=== PATIENT | male | born 1965 | race Caucasian/White ===

== ENCOUNTER 2024-03-14 18:48 | Emergency (ER) | payer OTHER, SELFPAY ==
[2024-03-14 18:51] VITALS: BP 163/83
[2024-03-14 19:15] VITALS: BP 147/82
[2024-03-14 19:34] LABS: % Basophils 0.7 % (0-2); % Eosinophils 2.3 % (0-6); % Immature Granulocytes 0.2 % (0-0.5); % Lymphocytes 30.4 % (20.5-51.1); % Monocytes 7.8 % (1.7-9.3); % Neutrophils 58.6 % (42.2-75.2); Absolute Eosinophils 0.1 10^3/uL (0-0.7); Absolute Lymphocytes 1.7 10^3/uL (1.2-3.4); Absolute Monocytes 0.4 10^3/uL (0.1-0.6); Absolute Neutrophils 3.3 10^3/uL (1.4-6.5); Hematocrit 36.9 % (39.0-52.0); Hemoglobin 12.8 g/dL (13.0-18.0); Mean Corp Hgb Conc. 34.7 g/dL (33.0-37.0); Mean Corpuscular Hgb 31.4 pg (27.0-31.0); Mean Corpuscular Volume 90.4 fL (80.0-94.0); Mean Platelet Volume 11.2 fL (7.4-10.4); Nucleated Red Blood Cells % 0 % (-); Platelet Count 121 10^3/uL (130-400); Red Blood Cell Count 4.08 10^6/uL (4.70-6.10); Red Cell Dist. Width 13.2 % (11.5-14.5); White Blood Cell Count 5.6 10^3/uL (4.8-10.8)
[2024-03-14 19:47] LABS: ALT (SGPT) 27 U/L (0-50); AST (SGOT) 34 U/L (17-59); Alkaline Phosphatase 64 U/L (38-126); Blood Urea Nitrogen 35 mg/dl (9-20); Calcium 10.8 mg/dl (8.4-10.2); Carbon Dioxide 27 mmol/L (22-30); Chloride 103 mmol/L (98-107); Glucose 104 mg/dl (70-99); Potassium 3.9 mmol/L (3.5-5.1); Sodium 137 mmol/L (135-145); Total Bilirubin 0.7 mg/dl (0.2-1.3); Total Protein 7.2 g/dl (6.3-8.2); eGFR > 60.00
[2024-03-14 19:58] LABS: Troponin I < 0.012 ng/ml
[2024-03-14 20:00] VITALS: BP 144/72
[2024-03-14 21:00] VITALS: BP 142/66
--- NOTE | 2024-03-14 21:17 | ED.GENMED ---
History of Present Illness
General
Chief Complaint: Cardiac Symptoms
Source: patient
Time Seen by Provider: 03/14/24 19:15
Travel History
Have you had any contact with someone who has COVID-19?: No
Do you have any symptoms of coronavirus? Fever > 100 degrees, chills, cough, shortness of breath, sore throat, loss of taste or smell, muscle aches, or headache?: No
History of Present Illness
History of Present Illness:
58-year-old male who presents with palpitations. Patient states that earlier this morning. Patient currently feels a little better. No shortness of breath. No syncope. Has had a stress test in the past that was normal. He does exercise
regularly and has been tolerating it well. No chest pain. Patient has been Dr. Demarco. The patient states that he did check his heart on his debra and his rhythm strips suggest that he had A-fib. He was not sure so he decided come for evaluation
Past History
Past History
ED Past Medical History: Other (+brain aneursym) and Other (thrombocytopenia)
ED Past Surgical History: None
Social History
Tobacco: Non-smoker
Alcohol: None
Drug: None
Personal:
Living: with family
Family History
Family History: Negative Early CAD
Phy Exam
Physical Exam
Physical Exam:
CONSTITUTIONAL Patient alert and oriented to person, place and time. Well-appearing. Vital signs reviewed.
HEAD atraumatic, normocephalic.
EYES eyelids normal to inspection, Pupils equally round and reactive to light, Extraocular muscles intact, Conjunctiva normal, Sclera normal.
NECK normal range of motion, Trachea midline, no jugular venous distention.
RESPIRATORY CHEST No respiratory distress noted, Chest expansion equal, Bilateral breath sounds clear.
CARDIOVASCULAR regular rate and rhythm, Heart sounds normal.
UPPER EXTREMITY range of motion normal, Motor strength normal, no cyanosis, no edema.
LOWER EXTREMITY range of motion normal, Motor strength normal, no cyanosis, no edema.
NEURO Speech normal, No focal motor deficits, [place] coma scale 15, Memory normal, Cranial Nerves intact to screening exam.
SKIN skin warm, dry, and normal in color.
PSYCHIATRIC patient oriented to person place and time, Normal affect.
Course
Orders/Labs/Results
Orders:
Orders
03/14/24 18:51
Electrocardiogram (*1) Urgent
Reason for Study: Palpitations
EKG- Treatment ONCE
03/14/24 19:26
Complete Blood Count/With Diff Urgent
Comprehensive Metabolic Panel Urgent
Lyme Progressive Urgent
Comment: ADD ON
Troponin I Urgent
03/14/24 19:51
Add On- LAB Urgent
Tests Added?: lyme progressive
Abnormal Lab Results
03/14/24
19:26
RBC 4.08 L 10^6/uL
(4.70-6.10)
Hgb 12.8 L g/dL
(13.0-18.0)
Hct 36.9 L %
(39.0-52.0)
MCH 31.4 H pg
(27.0-31.0)
Plt Count 121 L 10^3/uL
(130-400)
MPV 11.2 H fL
(7.4-10.4)
BUN 35 H mg/dl
(9-20)
Glucose 104 H mg/dl
(70-99)
Calcium 10.8 H mg/dl
(8.4-10.2)
03/14/24 19:26
03/14/24 19:26
Vital Signs
Initial and Last Documented VS:
Initial Vital Signs
Temp Pulse Resp BP Pulse Ox
97.9 F 72 17 163/83 99
03/14/24 18:51 03/14/24 18:51 03/14/24 18:51 03/14/24 18:51 03/14/24 18:51
Last Documented Vital Signs
Temp Pulse Resp BP Pulse Ox
97.9 F 64 14 147/82 99
03/14/24 18:51 03/14/24 19:30 03/14/24 19:30 03/14/24 19:15 03/14/24 18:51
MDM/Problems Addressed
MDM/Problems Addressed:
Palpitations, PVCs, U waves
*Pulse Oximetry
Patient hypoxic: no
*EKG
Interpreted by ED Provider?: Yes
Interpretation: normal
Comparison EKG: no changes (Compared to 2013 EKG)
Rate: normal
[place]: normal axis
Interval: normal interval and other (U waves noted)
QRS Pattern: normal QRS
Ischemia: no ischemia
*Electrical Controls Engineer Interpretation
Rate: normal
Interpretation: normal
Rhythm: sinus
*Critical Care Note
Total Time (30-74mins, 75-104mins- exclusive of procedures): Not Applicable
Data Reviewed
Review of Other/Old Records Reveals: Other (ekg reviewed)
Source: patient and spouse
Prescriptions/Medications Considered But Not Given:
Consider beta-ayde but no evidence of A-fib
Patient Management
Escalation/DeEscalation of care consider admission/obs:
The patient's strip on his phone debra was reviewed. No evidence of A-fib. EKG shows possible U waves that I do see on his old EKG as well. Labs grossly unremarkable. Will refer to cardio for outpatient follow-up possible Holter. The patient does
admit that he only drinks about 2030 ounces of water a day. I advised him to take at least 80 to 100 ounces. He does exercise and has been tolerating it well. Outpatient
ED Attending Note
-
Portions of this chart may have been created with voice recognition software.� Occasional wrong word or��sound alike� substitutions may have occurred due to the inherent limitations of voice recognition software.
Discharge Plan
Departure
Patient Disposition: Home (Routine Discharge)
Date of Disposition: 03/14/24
Time of Disposition: 21:29
Patient with high blood pressure during this ER visit?: Yes
Discharge Problem:
Heart palpitations, Frequent PVCs
Instructions: Ventricular premature beats, Palpitations, BLOOD PRESSURE
Prescriptions:
No Action
ondansetron [Zofran ODT] 8 MG tablet,disintegrating
8 mg PO Q8H Qty: 12 0RF
Referrals:
Marvin Oliveira MD [Family Provider] -
Activity Restrictions/Additional Instructions:
Please drink 80 to 100 ounces of water daily. Please see your radio time buyer in the next 1 week for follow-up and reevaluation possible Holter monitoring. Return immediately for lightheadedness, passing out episode, chest pain, shortness of breath,
weakness of any kind or any other concerns.
Interventions
Interventions:
*Risk Screen - Suicide Last Done: 03/14/24 19:35
*General Assessment Last Done: 03/14/24 19:35
*Neglect/Abuse Screening Last Done: 03/14/24 19:35
ED- Fall Risk Assessment Last Done: 03/14/24 19:32
ED- Pulmonary Assessment Last Done: 03/14/24 19:32
ED- Cardiac Assessment Last Done: 03/14/24 19:32
Discharge Date and Time
Print Language: MALAWIAN
[2024-03-16 16:55] LABS: Lyme Antibody Screen, EIA Negative (Negative)
== END 2024-03-14 21:46 | disposition home or self-care (01) ==
LOC: EMR 18:48
PROVIDERS: EMERGENCY PHYSICIAN Emergency Medicine; FAMILY PHYSICIAN Internal Medicine
DX: R00.2 Palpitations (principal); I49.3 Ventricular premature depolarization; R03.0 Elevated blood-pressure reading, without diagnosis of hypertension
CPT/HCPCS: 99284; 80053; 84484; 85025; 86618; 93005

== ENCOUNTER → 2025-03-11 09:04 | Outpatient (REF) | payer OTHER, SELFPAY | LOC: RAD 09:04 | PROVIDERS: ATTENDING PHYSICIAN Internal Medicine | DX: M54.2 Cervicalgia (principal) | CPT/HCPCS: 72040 ==

== ENCOUNTER → 2025-03-22 06:49 | Outpatient (REF) | payer OTHER, SELFPAY | LOC: MRI 3T 06:49 | PROVIDERS: ATTENDING PHYSICIAN Specialist; FAMILY PHYSICIAN Internal Medicine | DX: Q28.3 Other malformations of cerebral vessels (principal) | CPT/HCPCS: 70544 ==

== ENCOUNTER 2025-10-12 17:57 | Emergency (ER) | payer OTHER, SELFPAY ==
[2025-10-12 18:09] VITALS: BP 149/80
[2025-10-12 18:49] LABS: Hematocrit 41.6 % (39.0-52.0); Hemoglobin 14.2 g/dL (13.0-18.0); Mean Corp Hgb Conc. 34.1 g/dL (33.0-37.0); Mean Corpuscular Volume 91.2 fL (80.0-94.0); Nucleated Red Blood Cells % 0 % (-); Platelet Count 128 10^3/uL (130-400); Red Cell Dist. Width 13.2 % (11.5-14.5)
[2025-10-12 18:51] LABS: ALT (SGPT) 51 U/L (0-50); AST (SGOT) 37 U/L (17-59); Albumin 5.0 g/dl (3.5-5.0); Alkaline Phosphatase 66 U/L (38-126); Blood Urea Nitrogen 29 mg/dl (9-20); Calcium 9.9 mg/dl (8.4-10.2); Carbon Dioxide 30 mmol/L (22-30); Chloride 103 mmol/L (98-107); Glucose 120 mg/dl (70-99); Lipase 90 U/L (23-300); Potassium 4.0 mmol/L (3.5-5.1); Sodium 137 mmol/L (135-145); Total Protein 7.3 g/dl (6.3-8.2); eGFR > 60.00
[2025-10-12 19:03] LABS: Troponin I < 0.012 ng/ml
[2025-10-12 19:44] VITALS: BP 133/71
[2025-10-12 20:00] VITALS: BP 137/63
--- NOTE | 2025-10-12 20:13 | ED.GENMED ---
History of Present Illness
General
Chief Complaint: Chest Pain
Source: patient
Exam Limitations: none
Time Seen by Provider: 10/12/25 19:50
Nursing documentation reviewed up to this point in time: agreed with
History of Present Illness
History of Present Illness:
60-year-old male presenting with chest pain. The onset of symptoms occurred [address], with feeling increased heart rate and generalized tingling sensation, with left pectoral area pain, episode lasting 'less than a minute' and occurred
once again while in [place]. Asymptomatic now. The patient checked his home EKG (via [facility]), which indicated atrial fibrillation; however, his reporter later evaluated him and found no evidence of atrial fibrillation, attributing the initial
reading to device sensitivity. The patient reports his blood pressure was elevated in the 130s at home, although typically it ranges from 116 to 120 over 60.
No SOB, n/v/d/c.
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 TSH was 2.1. States his Calcium score is '0'
Past History
Past History
ED Past Medical History: Other (+brain aneursym) and Other (thrombocytopenia)
ED Past Surgical History: None
Social History
Tobacco: Non-smoker
Alcohol: None
Drug: None
Personal:
Living: with family
Family History
Family History: Negative Early CAD
Review of Systems
Review of Systems
Allergies reviewed?: Yes
All Other Systems: ROS reviewed and negative except as documented in HPI and ROS
Phy Exam
Physical Exam
Physical Exam:
GENERAL: No acute distress. A&Ox3.
CONSTITUTIONAL: Afebrile.
EYES: clear, conjunctivae normal
ENMT: moist mucus membranes
RESPIRATORY: Regular respirations, nonlabored, lungs clear.
CARDIOVASCULAR: Regular rate and rhythm, no murmurs, no rubs.
GI: Soft, nontender, normal BS
MUSCULOSKELETAL: Moves with ease. Well perfused.
SKIN: Warm, dry, pink
PSYCH: Normal mood and affect. Well kept, interactive and appropriate
NEUROLOGIC: Awake, alert and oriented. No focal neurological deficits
Scores
Heart Score for Chest Pain Patients
STEMI patient?: Not applicable
Course
Orders/Labs/Results
Orders:
Orders
10/12/25 17:57
EKG [Electrocardiogram (*1)] Urgent
Reason for Study: Chest Pain
10/12/25 17:58
EKG- Treatment ONCE
10/12/25 18:24
Complete Blood Count/With Diff Urgent
Comprehensive Metabolic Panel Urgent
Lipase Urgent
Troponin I Urgent
10/12/25 20:22
CR Chest - 2 Views Urgent
Comment:
Reason For Exam: CP
10/12/25 21:34
Troponin I Urgent
Abnormal Lab Results
10/12/25
18:24
RBC 4.56 L 10^6/uL
(4.70-6.10)
MCH 31.1 H pg
(27.0-31.0)
Plt Count 128 L 10^3/uL
(130-400)
MPV 10.9 H fL
(7.4-10.4)
BUN 29 H mg/dl
(9-20)
Glucose 120 H mg/dl
(70-99)
ALT 51 H U/L
(0-50)
10/12/25 18:24
10/12/25 18:24
Vital Signs
Initial and Last Documented VS:
Initial Vital Signs
Temp Pulse Resp BP Pulse Ox
98.2 F 62 18 149/80 99
10/12/25 18:09 10/12/25 18:09 10/12/25 18:09 10/12/25 18:09 10/12/25 18:09
Last Documented Vital Signs
Temp Pulse Resp BP Pulse Ox
98.2 F 53 14 121/71 100
10/12/25 18:09 10/12/25 21:38 10/12/25 21:38 10/12/25 21:00 10/12/25 21:38
MDM/Problems Addressed
Differential Diagnosis Includes:
Angina, [place], A-fib, hyperthyroid, anxiety
MDM/Problems Addressed:
60-year-old male presenting with chest pain. The onset of symptoms occurred 5 [address], with feeling increased heart rate and generalized tingling sensation, with left pectoral area pain episode lasting 'less than a minute' and occurred
once again while in [place]. Asymptomatic now. The patient checked his home EKG (via [facility]), which indicated atrial fibrillation; however, his reporter later evaluated him and found no evidence of atrial fibrillation, attributing the initial
reading to device sensitivity. The patient reports his blood pressure was elevated in the 130s at home, although typically it ranges from 116 to 120 over 60.
No SOB, n/v/d/c.
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 TSH was 2.1. States his Calcium score is '0'
EKG NSR
CBC, CMP with no clinically significant abnormality
Lipase WNL
10:15 p.m.
Repeat Troponin normal
Chest x-ray NAD
Pt stable for discharge, no further episodes while here.
*Pulse Oximetry
SaO2: 100
Oxygen Mode of Delivery: Room air
Patient hypoxic: no
*EKG
EKG Intrepretation Date: 10/12/25
Interpretation: abnormal
Comparison EKG: no changes
Heart Rate: 55
Rate: bradycardiac
Rhythm: sinus
[place]: normal axis
Interval: normal interval
QRS Pattern: normal QRS
Ischemia: no ischemia
*Critical Care Note
Total Time (30-74mins, 75-104mins- exclusive of procedures): Not Applicable
ED Attending Note
-
Portions of this chart may have been created with voice recognition software.� Occasional wrong word or��sound alike� substitutions may have occurred due to the inherent limitations of voice recognition software.
Discharge Plan
Departure
Patient Disposition: Home (Routine Discharge)
Date of Disposition: 10/12/25
Time of Disposition: 22:22
Patient with high blood pressure during this ER visit?: No
Condition: Good
Discharge Problem:
Atypical chest pain, Heart palpitations
Instructions: Chest Pain That Is Not Caused by the Heart (DC), Palpitations
Prescriptions:
No Action
ondansetron [Zofran ODT] 8 MG tablet,disintegrating
8 mg PO Q8H Qty: 12 0RF
Referrals:
Marvin Oliveira MD [Family Provider, Internal Medicine] - As needed
Activity Restrictions/Additional Instructions:
As we discussed, nothing worrisome in your workup here today, specifically no sign of a heart attack or damage to your heart.
Interventions
Interventions:
*Risk Screen - Suicide Last Done: 10/12/25 18:09
*General Assessment Last Done: 10/12/25 18:09
*Neglect/Abuse Screening Last Done: 10/12/25 23:26
*ED- Fall Risk Assessment Last Done: 10/12/25 23:26
*ED COVID-19 Vaccine History Last Done: 10/12/25 18:09
*ED Influenza Vaccine History Last Done: 10/12/25 18:09
*Nursing Disposition Last Done: 10/12/25 23:26
ED- Cardiac Assessment Last Done: 10/12/25 19:45
Discharge Date and Time
Discharge Date/Time: 10/12/25 23:27
Print Language: PASHTO
[2025-10-12 21:00] VITALS: BP 121/71
[2025-10-12 22:11] LABS: Troponin I < 0.012 ng/ml
== END 2025-10-12 23:27 | disposition home or self-care (01) ==
LOC: EMR 17:57
PROVIDERS: Registered Nurse; Student in an Organized Health Care Education/Training Program; EMERGENCY PHYSICIAN Student in an Organized Health Care Education/Training Program; FAMILY PHYSICIAN Internal Medicine
DX: R07.89 Other chest pain (principal); R00.2 Palpitations
CPT/HCPCS: 99284; 71046; 80053; 83690; 84484; 85025; 93005